=== PATIENT | female | born 1985 | race African-American/Black ===

== ENCOUNTER 2022-03-09 01:35 | Emergency (ER) | payer MEDICAID, SELFPAY ==
[2022-03-09 01:37] VITALS: BP 126/53; PULSE 82; RESP 16; TEMP 36.4; O2SAT 98; BMI 29.9
--- NOTE | 2022-03-09 02:40 | CT_ITS ---
EXAM: CT HEAD WITHOUT INTRAVENOUS CONTRAST CLINICAL INDICATION: headache TECHNIQUE: Multiple axial images were obtained of the head without intravenous contrast. CTDIvol = ( 44.99 ) mGy, DLP = ( 829.85 ) mGycm This CT exam was performed using one or more of the following dose reduction techniques: automated exposure control, adjustment of the mA and/or kV according to patient size, and/or use of iterative reconstruction technique. This report was created using [employer] report generation technology. COMPARISON: None. FINDINGS: BRAIN AND EXTRA-AXIAL SPACES: Unremarkable. No intra- or extra-axial hemorrhage. No evidence of acute infarct. No intracranial mass or mass effect. There is preservation of the silver/white matter interface. Posterior fossa structures are unremarkable. Ventricles are appropriate for age. No hydrocephalus. Basal cisterns are patent. BONES/JOINTS: Unremarkable. No discrete lytic or blastic abnormalities. SINUSES: Unremarkable as visualized. Clear. MASTOID AIR CELLS: Unremarkable. Clear. ORBITS: Visualized globes, extraocular muscles, optic nerves and retrobulbar fat appear unremarkable. CT/Brain/Head without Contrast IMPRESSION: Negative head/brain CT without intravenous contrast. Electronically Signed: Alberto Jalloh MD at 3:30 EDT ,
[2022-03-09] MEDS: Metoclopramide 10 MG/2 ML Vial IV (03:02)
[2022-03-09] MEDS: DiphenhydrAMINE 50 MG/ML Syringe IV (03:04)
[2022-03-09] MEDS: dexAMETHasone 10 MG/ML Vial IV (03:05)
[2022-03-09] MEDS: Ketorolac 30 MG/ML Syringe IV (03:07)
[2022-03-09] MEDS: 0.9% Normal Saline 1,000 ML 999 ML IV (03:08)
--- NOTE | 2022-03-09 04:00 | EX.ED.DYSGE1 ---
HPI History of Present Illness Chief Complaint: Headache Narrative Narrative: Patient is a 37-year-old female who reports no significant past medical history. She states that beginning approximately 10 to 14 days ago she noticed some pain in the right side of her neck. She states as time past the pain has radiated up into the right side of her head. She states there was no initial trauma. She denies any sick symptoms. She denies any family history of brain tumor or headache. She states she saw her family doctor who recommended Excedrin but despite taking this has had minimal symptom improvement. Therefore secondary to this she presents to the ER for evaluation [facility] Medical History no medical history no medical history Home Medications methocarbamol 500 mg tablet 1,000 mg PO 4X/DAY PRN PRN Muscle pain/spasm #56 tabs 03/09/22 [Rx Last Taken Unknown] Allergy/AdvReac Type Severity Reaction Status Date / Time No Known Allergies Allergy Verified 03/09/22 01:40 Social History Smoking Status: Current every day smoker tobacco type: cigarettes ROS ROS ED Constitutional Constitutional ED: Denies chills or fever(s) Eyes Eyes: Reports other Details: Negative photophobia ; Denies change in vision ENT ENT ED: Denies sore throat Cardiovascular Cardiovascular: Denies chest pain Respiratory/Chest Respiratory/Chest: Denies cough or dyspnea Gastrointestinal Gastrointestinal: Denies abdominal pain, diarrhea, nausea or vomiting Genitourinary Genitourinary ED: Reports other Details: Negative ; Denies dysuria Musculoskeletal Musculoskeletal: Reports neck pain; Denies myalgias Integumentary Denies rash Neurologic Neurologic: Reports headache(s) Hematologic/Lymphatic Hematologic/Lymphatic: Denies easy bleeding or easy bruising EXAM Physical Exam Const Vital Signs: 03/09/22 01:37 03/09/22 01:37 Temperature 97.6 F L 97.6 F L Temperature Source Temporal Temporal Pulse Rate 82 82 Respiratory Rate 16 16 Blood Pressure 126/53 H 126/53 H Blood Pressure Mean 77 77 Pulse Ox 98 98 Oxygen Delivery Method Room Air Room Air Positive well nourished and well developed General Appearance ED: well developed HEENT Reports TM's clear and moist mucous membranes HEENT Narrative: No pain on palpation of the maxillary or frontal sinuses Tympanic Membrane ED: Yes TM's clear Eyes PERRL and EOMs intact bilaterally Neck supple Neck Narrative: There is right paracervical tension and spasm noted without meningeal signs Resp normal respiratory effort and clear to auscultation bilaterally Cardio regular rate and regular rhythm Extremity normal to inspection Neuro oriented x3 and CN's II-XII intact bilaterally Neuro Narrative: Cranial nerves II through XII are grossly intact there are no focal neurologic deficits. No pronator drift no dysmetria no truncal ataxia. NIH stroke scale score of 0 Sensorium / Orientation: alert Psych mental status grossly normal Skin no rashes or lesions noted Skin Narrative: No overlying soft tissue changes to suggest trauma or infection MDM MDM MDM Narrative Medical decision making narrative: Patient presented to the ER with stable vitals and a normal neurologic exam and without meningeal signs. However despite the prolonged nature of her headache and no previous imaging studies I did elect to perform a noncontrast CT. the CT revealed no acute findings. The patient was medicated with IV fluids Toradol Benadryl Reglan Decadron and Norflex. On reevaluation she reports resolution of the headache and her neuro exam remains normal. Therefore at this time with negative imaging studies and resolution of headache I feel patient is safe for discharge and I do believe this is most likely musculoskeletal in origin and therefore will prescribe muscle relaxers for home. Radiography Diagnostic Testing: Clinical Impression(s) from Imaging Studies Brain CT 03/09/22 02:40 IMPRESSION: Negative head/brain CT without intravenous contrast. Electronically Signed: Alberto Jalloh MD at 3:30 EDT , Discharge Plan Triage Chief Complaint: Headache ED Provider: Alberto Aleman Dx/Rx/DC Orders Clinical Impression: Cephalgia, Cervical paraspinal muscle spasm Instructions: ED Headache, Tension, ED Neck Spasm, No Trauma Prescriptions: New methocarbamol 500 mg tablet 1,000 mg PO 4X/DAY PRN PRN (Reason: Muscle pain/spasm) Qty: 56 0RF Primary Care Provider: Christelle Marx NP Referrals: Christelle Marx [employer] OPERATOR, [employer] OPERATOR-C [Primary Care Provider] - Activity Restrictions/Additional Instructions: I feel the main cause of your headache is persistent muscle tension and spasm so take the muscle relaxer as directed and you can continue to take Tylenol Motrin or Excedrin on top of this if needed. Please return to the ER should you have any further concerns Disposition Disposition: Home, Self Care
[2022-03-09] MEDS: Orphenadrine 60 MG/2 ML Ampul IV (04:38)
[2022-03-09 04:40] VITALS: BP 123/65; PULSE 78; RESP 15; O2SAT 98
== END 2022-03-09 04:45 | disposition home or self-care (01) ==
PROVIDERS: Emergency Provider Emergency Medicine; PCP Nurse Practitioner Family; Visit Provider Emergency Medicine
DX: M62.830 Muscle spasm of back (principal); F17.210 Nicotine dependence, cigarettes, uncomplicated; R51.9 Headache, unspecified
CPT/HCPCS: 70450; 96361; 96374; 96375; 99283; J7030; A4216